=== PATIENT | male | born 1965 | race Caucasian/White ===

== ENCOUNTER 2018-08-17 23:37 | Emergency (ER) | payer SELFPAY ==
[~2018-08-17] VITALS: Ht 162.6 cm; Wt 95.5 kg
[2018-08-17 23:42] VITALS: BP 140/87; PULSE 69; RESP 16; Ht 162.6 cm; Wt 95.5 kg
== END 2018-08-18 03:00 | disposition left against medical advice (07) ==
LOC: FTE 23:37
DX: Z53.21 Procedure and treatment not carried out due to patient leaving prior to being seen by health care provider (principal)